=== PATIENT | female | born 1990 | race American Indian/Alaskan Native ===

== ENCOUNTER 2018-06-13 13:21 | Emergency (ER) | payer OTHER ==
[2018-06-13 13:53] VITALS: BP 114/75
--- NOTE | 2018-06-13 13:54 | Emergency Department Report ---
Blank Doc - Documentation Documentation: 27 y.o female presents c/o of FB in right breast for over 1 month. had a nipple ring with skin over growth and wants it reomved
--- NOTE | 2018-06-13 14:26 | Emergency Department Report ---
ED Female HPI - General Chief complaint: Medical Clearance Stated complaint: RT SIDE BREAST PAIN Time Seen by Provider: 06/13/18 13:53 Source: patient Mode of arrival: Ambulatory Limitations: No Limitations - History of Present Illness Initial comments: This is a 27-year-old -[place] female who presents with part of a nipple piercing stuck under right breast. Patient is also complaining of a wound to the right areola where piercing entered. Patient states piercing has been there for 2-3 months. She was seen in this emergency room couple weeks back and displays referral information. Patient states wound has increased in size and there is some purulent drainage. She also complains of tenderness to touch. She denies fever, numbness or tingling, swelling, bruising. MD Complaint: other (wound to the right areola) Onset/Timin -: month(s) Location: other (right areola) Radiation: non-radiating Severity: mild Severity scale (0 -10): 2 Quality: aching Consistency: intermittent Improves with: none Worsens with: other (touch) Are you Now?: No Associated Symptoms: denies other symptoms - Related Data Previous Rx's Medication Instructions Recorded Last Taken Type Ibuprofen [Motrin 600 MG tab] 600 mg PO Q8H #30 tablet 12/29/17 Unknown Rx cephALEXin [Keflex] 500 mg PO Q12HR #14 cap 12/29/17 Unknown Rx Clindamycin [Clindamycin CAP] 300 mg PO Q8H #30 cap 06/13/18 Unknown Rx traMADol [Ultram 50 MG tab] 50 mg PO Q6HR PRN #12 tablet 06/13/18 Unknown Rx Allergies Allergy/AdvReac Type Severity Reaction Status Date / Time No Known Allergies Allergy Verified 06/13/18 13:23 ED Review of Systems ROS: Stated complaint: RT SIDE BREAST PAIN Other details as noted in HPI Constitutional: denies: chills, fever Respiratory: denies: cough, shortness of breath, wheezing Cardiovascular: denies: chest pain, palpitations Gastrointestinal: denies: abdominal pain, nausea, diarrhea Skin: lesions (wound to right areola with piercing stuck under skin). denies: rash Neurological: denies: headache, weakness, paresthesias Psychiatric: denies: anxiety, depression ED Past Medical Hx - Past Medical History Previous Medical History?: No - Surgical History Past Surgical History?: No - Social History Smoking Status: Never Smoker Substance Use Type: None - Medications Home Medications: Home Medications Medication Instructions Recorded Confirmed Last Taken Type Ibuprofen [Motrin 600 MG tab] 600 mg PO Q8H #30 tablet 12/29/17 Unknown Rx cephALEXin [Keflex] 500 mg PO Q12HR #14 cap 12/29/17 Unknown Rx Clindamycin [Clindamycin CAP] 300 mg PO Q8H #30 cap 06/13/18 Unknown Rx traMADol [Ultram 50 MG tab] 50 mg PO Q6HR PRN #12 tablet 06/13/18 Unknown Rx ED Physical Exam - General Limitations: No Limitations General appearance: alert, in no apparent distress - Respiratory Respiratory exam: Present: normal lung sounds bilaterally. Absent: respiratory distress - Cardiovascular Cardiovascular Exam: Present: regular rate, normal rhythm. Absent: systolic murmur, diastolic murmur, rubs, gallop - GI/Abdominal GI/Abdominal exam: Present: soft, normal bowel sounds - Neurological Exam Neurological exam: Present: alert, oriented X3 - Psychiatric Psychiatric exam: Present: normal affect, normal mood - Skin Skin exam: Present: warm, dry, intact, normal color, other (1 cm annular wound at 11 o'clock of right areola, purulent drainage, tenderness, edges approximated). Absent: rash ED Course Vital Signs 06/13/18 13:50 Temperature 97.6 F Pulse Rate 106 H Respiratory 16 Rate Blood Pressure 114/75 O2 Sat by Pulse 94 Oximetry ED Medical Decision Making - Medical Decision Making Patient was examined by me. Vitals are normal and patient is in no acute distress. There is a wound to right areola that is suspected to be infected and foreign object beneath. Start clindamycin 300 mg by mouth 3 times a day 10 da ys and tramadol 50 mg by mouth every 6 hours when necessary #12. Referral to a breast surgeon for continued care. Plan discussed with patient to discharge home and treat outpatient. She agrees with ER plan. Patient discharged home in stable condition. Follow up with PCP in 2-3 days. Critical care attestation.: If time is entered above; I have spent that time in minutes in the direct care of this critically ill patient, excluding procedure time. ED Disposition Clinical Impression: Foreign body of breast with infection Qualifiers: Encounter type: initial encounter Laterality: right Qualified Code(s): S20.151A - Superficial foreign body of breast, right breast, initial encounter; L08.9 - Local infection of the skin and subcutaneous tissue, unspecified Disposition: TO HOME OR SELFCARE Is pt being admited?: No Does the pt Need Aspirin: No Condition: Stable Instructions: Wound Infection (ED), Acute Wound Care (ED), Soft Tissue Foreign Body (ED) Additional Instructions: Complete full course of antibiotics as prescribed. Avoid drinking alcohol while taking antibiotics and for up to 24 hours after completion. Make sure you make an appointment with a breast specialist from the referrals below for management of wound and removal of foreign object of right breast. Return to the emergency room if won't increased in size, foul-smelling drainage, or pain is uncontrolled. Prescriptions: Clindamycin [Clindamycin CAP] 300 mg PO Q8H #30 cap traMADol [Ultram 50 MG tab] 50 mg PO Q6HR PRN #12 tablet PRN Reason: Pain Referrals: [facility] MD ART [Primary Care Provider] - 3-5 Days JENIFFER LANDRY MD [Staff Physician] - 3-5 Days LOAN AGUILERA MD [Staff Physician] - 3-5 Days Time of Disposition: 14:37
== END 2018-06-13 14:47 | disposition home or self-care (01) ==
LOC: ED 13:21
DX: S20.151A Superficial foreign body of breast, right breast, initial encounter (principal); X58.XXXA Exposure to other specified factors, initial encounter; Y93.89 Activity, other specified; Y92.89 Other specified places as the place of occurrence of the external cause; Y99.8 Other external cause status

== ENCOUNTER 2019-04-03 12:57 | Emergency (ER) | payer OTHER ==
--- NOTE | 2019-04-03 13:41 | Emergency Department Report ---
- HPI History of Present Illness: 28 y/o female comes in for STD check. Denies any vaginal pain, vaginal discharge, vaginal bleeding or pelvic and abdominal pain. - Exam Physical Exam: AxO times 3 three NAD Ambulating well with out difficulties. MSE screening note: Focused history and physical exam performed. Due to findings the following was ordered: 28 y/o female comes in for STD check. Denies any vaginal pain, vaginal discharge, vaginal bleeding or pelvic and abdominal pain. Referral to health department or [facility]. <ROGELIO UNDERWOOD - Last Filed: 04/03/19 13:37> - Exam Vital Signs: Vital Signs 04/03/19 13:36 Temperature 98.4 F Pulse Rate 118 H Respiratory 16 Rate Blood Pressure 149/89 O2 Sat by Pulse 100 Oximetry MSE screening note: Focused history and physical exam performed. Due to findings the following was ordered: <XI POWELL P - Last Filed: 04/03/19 13:45> Chief Complaint: Urogenital-Female Stated Complaint: STD EXPOSURE Time Seen by Provider: 04/03/19 13:36 ED Medical Decision Making - Medical Decision Making 28 y/o female comes in for STD check. Denies any vaginal pain, vaginal discharge, vaginal bleeding or pelvic and abdominal pain. <ROGELIO UNDERWOOD - Last Filed: 04/03/19 13:37> - Medical Decision Making Attestation: Available for consultation <XI POWELL P - Last Filed: 04/03/19 13:45> ED Disposition for MSE Is pt being admited?: No Does the pt Need Aspirin: No <ROGELIO UNDERWOOD - Last Filed: 04/03/19 13:37> Is pt being admited?: No <XI POWELL P - Last Filed: 04/03/19 13:45> Clinical Impression: Vaginal discharge Disposition: MED SCREENING EXAM-LEFT Condition: Stable Referrals: [facility] [Outside] - 3-5 Days [facility] [Outside] - 3-5 Days [facility] [Outside] - 3-5 Days [facility] [Outside] - 3-5 Days
[2019-04-03 13:45] VITALS: BP 149/89
== END 2019-04-03 13:48 | disposition left against medical advice (07) ==
LOC: ED 12:57
DX: N89.8 Other specified noninflammatory disorders of vagina (principal)
CPT/HCPCS: 99281